=== PATIENT | female | born 1965 | race Caucasian/White ===

== ENCOUNTER 2018-02-19 19:42 | Emergency (ER) | payer OTHER ==
[~2018-02-19] VITALS: Ht 154.9 cm; Wt 59.0 kg
[2018-02-19 19:46] VITALS: BP 136/65; PULSE 57; RESP 16; TEMP 97.8; O2SAT 97
[2018-02-19] MEDS ORDERED: AUGM875T3 PO (20:00)
[2018-02-19] MEDS ORDERED: AMOXICILLIN/CLAVULANATE K 875 MG TAB PO ONE (20:00)
--- NOTE | 2018-02-19 20:01 | PD ---
HPI Chief Complaint: Bite or Sting Time Seen by Provider: 19:50 Travel History International Travel<30 days: No Contact w/Intl Traveler<30days: No Traveled to known affect area: No History of Present Illness HPI 52-year-old female presents to the emergency department for evaluation of a dog bite to her left distal lateral thigh that occurred approximately 6 hours ago. 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 Patient knows where the dog resides. This is not a stray dog. Patient states her tetanus immunization was 1 year ago. She has no chronic medical problems and takes no prescribed medications. No exacerbating or alleviating factors. Mild severity PFSH Past Medical History ?: Not Social History Alcohol Use: No Tobacco Use: No Substance Use: No Allergies-Medications (Allergen,Severity, Reaction): Coded Allergies: No Known Allergies (Unverified , 02/19/18) Reported Meds & Prescriptions Reported Meds & Active Scripts Active Augmentin (Amoxicillin-Clavulanate) 875-125 Mg Tab 1 Tab PO BID 10 Days Review of Systems Except as stated in HPI: all other systems reviewed are Neg Physical Exam Narrative GENERAL: Well-nourished, well-developed female patient, afebrile SKIN: Focused skin assessment warm/dry. Patient has a less than 0.5 cm superficial laceration to the left lateral distal thigh. HEAD: Normocephalic. Atraumatic. EYES: No scleral icterus. No injection or drainage. NECK: Supple, trachea midline. No JVD or lymphadenopathy. CARDIOVASCULAR: Regular rate and rhythm without murmurs, gallops, or rubs. RESPIRATORY: Breath sounds equal bilaterally. No accessory muscle use. Lung sounds are clear to auscultation MUSCULOSKELETAL: No cyanosis, or edema. Data Data Last Documented VS Vital Signs Date Time Temp Pulse Resp B/P (MAP) Pulse Ox O2 Delivery O2 Flow Rate FiO2 02/19/18 19:46 97.8 57 16 136/65 (88) 97 Orders Orders Amoxicil-Clavulanate (Augmentin) (02/19/18 20:00) Wound Care (02/19/18 19:55) MDM Medical Decision Making Medical Screen Exam Complete: Yes Emergency Medical Condition: Yes Medical Record Reviewed: Yes Differential Diagnosis Dog bite versus laceration versus abrasion Narrative Course 52-year-old female presents to the emergency department for dilation of laceration from a dog bite. Laceration is small, superficial. Patient will be started on Augmentin. Wound care is completed. The patient was discharged in stable condition with instructions, including return instructions and follow up instructions. Diagnosis Primary Impression: Dog bite Qualified Codes: W54.0XXA - Bitten by dog, initial encounter Referrals: Primary Care Physician call for appointment Patient Instructions: Animal Bite (ED), General Instructions Additional Instructions: Clean twice daily with soap and water and apply [id number] antibiotic ointment. Take antibiotic as directed until gone. Follow-up with a primary care physician. Return to the emergency department for any acute worsening of symptoms. Med/Other Pt SpecificInfo: Prescription(s) given Scripts Amoxicillin-Clavulanate (Augmentin) 875-125 Mg Tab 1 TAB PO BID for Infection for 10 Days, #20 TAB 0 Refills Prov: Kitty Laurent 02/19/18 Disposition: 01 DISCHARGE HOME Condition: Stable Kitty Laurent February 19, 2018 20:01
== END 2018-02-19 20:26 | disposition home or self-care (01) ==
LOC: PHEFT 19:42
DX: S70.372A Other superficial bite of left thigh, initial encounter (principal); W54.0XXA Bitten by dog, initial encounter
CPT/HCPCS: 99283